=== PATIENT | female | born 1965 | race Caucasian/White ===

== ENCOUNTER 2017-06-08 17:11 | Emergency (ER) | payer BC ==
--- NOTE | 2017-06-08 20:22 | ED ---
Lower Extremity - HPI Summary HPI Summary: 52F presents with swelling to right lower legs for couple weeks. She is sent in by her ortho dr to rule out dvt. She has been evaluated for right knee swelling and is being treat for potential meniscus injury with PT. Her ortho dr noticed that she had inc swelling in right leg that does not believe is related to knee. She denies any calf pain. She denies any numbness or tingling. She states the entire area feels achy. She denies any injury. She states her varicose veins have become more prominent recently. She denies any chest pain or SOB. - History of Current Complaint Chief Complaint: EDExtremityLower Stated Complaint: RT LEG PAIN Time Seen by Provider: 06/08/17 19:51 Pain Intensity: 9 - Allergies/Home Medications Allergies/Adverse Reactions: Allergies Allergy/AdvReac Type Severity Reaction Status Date / Time No Known Allergies Allergy Verified 06/08/17 17:44 PMH/Surg Hx/FS Hx/Imm Hx Endocrine/Hematology History: Denies: Hx Anticoagulant Therapy Cardiovascular History: Reports: Hx Hypertension Infectious Disease History: No Infectious Disease History: Denies: Traveled Outside the [place] in Last 30 Days - Family History Known Family History: Negative: Blood Disorder - Social History Alcohol Use: None Substance Use Type: Reports: None Smoking Status (MU): Never Smoked Tobacco Review of Systems Negative: Fever Negative: Chest Pain Negative: Shortness Of Breath Positive: Myalgia - swelling and pain right leg All Other Systems Reviewed And Are Negative: Yes Physical Exam Triage Information Reviewed: Yes Vital Signs On Initial Exam: Initial Vitals Temp Pulse Resp BP Pulse Ox 98 F 61 16 161/70 100 06/08/17 17:41 06/08/17 17:41 06/08/17 17:41 06/08/17 17:41 06/08/17 17:41 Vital Signs Reviewed: Yes Appearance: Positive: Well-Appearing Skin: Positive: Warm, Dry Head/Face: Positive: Normal Head/Face Inspection Eyes: Positive: Normal, Conjunctiva Clear Respiratory/Lung Sounds: Positive: Clear to Auscultation, Breath Sounds Present Cardiovascular: Positive: Normal, RRR Musculoskeletal: Positive: Strength/ROM Intact - right leg, Edema Right - mild, Other - good pulses, capillary refill<2 secs. Negative: Rico Sign Right Neurological: Positive: Normal Psychiatric: Positive: Normal - Chris Coma Scale Coma Scale Total: 15 Diagnostics - Vital Signs Vital Signs Temp Pulse Resp BP Pulse Ox 06/08/17 20:12 98.1 F 66 18 158/89 99 06/08/17 17:41 98 F 61 16 161/70 100 - Laboratory Lab Statement: Any lab studies that have been ordered have been reviewed, and results considered in the medical decision making process. - Ultrasound No standard instances Ultrasound Interpretation: No Acute Changes - IMPRESSION: 1. No evidence for RIGHT lower extremity deep venous thrombosis. 2. RIGHT Popliteal cyst. Ultrasound Interpretation Completed By: Radiologist Lower Extremity Course/Dx - Course Course Of Treatment: 52F presents with swelling to right lower legs for couple weeks. She is sent in by her ortho dr to rule out dvt. She has been evaluated for right knee swelling and is being treat for potential meniscus injury with PT. Her ortho dr noticed that she had inc swelling in right leg that does not believe is related to knee. She denies any calf pain. She denies any numbness or tingling. She states the entire area feels achy. She denies any injury. She states her varicose veins have become more prominent recently. on exam has mild edema to right leg. neg homans. u/s no DVT, popliteal cyst present. will have follow up with ortho. patient understand and agrees with plan. - Diagnoses Differential Diagnosis/HQI/PQRI: Positive: DVT, Phlebitis, Other - popliteal cyst Provider Diagnoses: Swelling of right lower extremity Discharge - Discharge Plan Condition: Good Disposition: HOME Patient Education Materials: [place] (ED) Referrals: William DURAN,Jacinta Whyte [Primary Care Provider] - Additional Instructions: Wear compressions socks Elevate extremity Take tyenlol for pain every 6 hours Follow up with ortho Return to ED if develop any new or worsening symptoms
--- NOTE | 2017-06-08 20:29 | RAD ---
INDICATION: RIGHT leg pain. COMPARISON: No relevant prior exams available on the [facility] for comparison. TECHNIQUE: Caballero scale, color Doppler, and spectral analysis of the deep veins of the RIGHT lower extremity. Vessel compression, phasicity, and augmentation assessed. REPORT: The RIGHT common femoral, great saphenous, profunda femoral, femoral, popliteal, peroneal, and posterior tibial veins are patent. 6.0 x 1.9 x 3.7 cm RIGHT popliteal cyst with evidence for synovitis. Patency of the LEFT common femoral vein documented. IMPRESSION: 1. No evidence for RIGHT lower extremity deep venous thrombosis. 2. RIGHT Popliteal cyst.
[2017-06-08 21:03] VITALS: BP 126/77
== END 2017-06-08 21:03 | disposition home or self-care (01) ==
LOC: ED 17:11
DX: M79.89 Other specified soft tissue disorders (principal); I10 Essential (primary) hypertension
CPT/HCPCS: 99282

== ENCOUNTER 2017-08-23 05:53 | Day surgery (SDC) | payer BC, OTHER ==
[~2017-08-23 05:53] MED LIST: Buffered Lidocaine 0.9% SYRIN* 5 ML/SYR SYRINGE INTRADERM ONE
[2017-08-23] MEDS ORDERED: Famotidine IV* 10 MG/ML 2 ML (20 mg) IV ONE (06:00)
[2017-08-23] MEDS ORDERED: Dexamethasone IV* 4 MG/ML 1 ML (4 MG) IV SLOW PU ONE (06:00)
[2017-08-23] MEDS ORDERED: Famotidine IV* 10 MG/ML 2 ML (20 mg) ONE (06:03)
[2017-08-23] MEDS ORDERED: Buffered Lidocaine 0.9% SYRIN* 5 ML/SYR SYRINGE ONE (06:04)
[2017-08-23] MEDS ORDERED: Dexamethasone IV* 4 MG/ML 1 ML (4 MG) ONE (06:04)
[2017-08-23] MEDS ORDERED: Bupivacaine 0.25% SDV* 30 ML ONE (07:01)
[2017-08-23] MEDS ORDERED: Lidocaine 1% MPF wEPI 200,000* 30 ML SDV ONE (07:01)
[2017-08-23] MEDS ORDERED: Midazolam* 1 MG/ML 10 ML VIAL (10 MG) ONE (07:08)
[2017-08-23] MEDS ORDERED: fentaNYL* 50 MCG/ML 2 ML VIAL (100 MCG VIAL) ONE ×3 (07:08→07:43)
[2017-08-23] MEDS ORDERED: Ketorolac INJ* 30 MG/ML 1 ML VIAL ONE (07:18)
[2017-08-23] MEDS ORDERED: Ondansetron INJ* 2 MG/ML VIAL ONE (07:18)
[2017-08-23] MEDS ORDERED: Phenylephrine INJ* 10 MG/ML 1 ML VIAL (10 MG) ONE (07:18)
[2017-08-23] MEDS ORDERED: Lidocaine 2% PF * 5 ML VIAL ONE (07:18)
[2017-08-23] MEDS ORDERED: Propofol* 10 MG/ML 20 ML BTL IV PUSH ONE (07:18)
[2017-08-23] MEDS ORDERED: EPHEDrine (Pressors)* 50 MG/ML VIAL ONE (07:19)
[2017-08-23] MEDS ORDERED: Glycopyrrolate IV* 0.2 MG/ML 1 ML VIAL ONE (07:30)
[2017-08-23] MEDS ORDERED: fentaNYL* 50 MCG/ML 2 ML VIAL (100 MCG VIAL) IV PRN (07:48)
[2017-08-23] MEDS ORDERED: Ondansetron INJ* 2 MG/ML VIAL IV PRN (07:48)
[2017-08-23] MEDS ORDERED: Naloxone* 0.4 MG/ML 1 ML VIAL IV PRN (07:48)
[2017-08-23] MEDS ORDERED: DiMENhydriNATE IV* 50 MG/ML VIAL IV PUSH PRN (07:48)
[2017-08-23] MEDS ORDERED: ceFAZolin 2 GM PREMIX (*) 2 GM/50 ML BAG IVPB ONE (08:00)
--- NOTE | 2017-08-23 08:43 | OP ---
Operative Report - Blank - Operative Report Date of Operation: 08/23/17 Note: PATIENT: Luna Beck DATE OF : 61 DATE OF SURGERY: 08/23/17 SURGEON: Hussain Lee MD MILL MANAGER: MARITZA Valiente's assistance was necessary for positioning, retraction, help with instrumentation, and closure. ANESTHESIOLOGIST: Dr Scott MD PREOPERATIVE DIAGNOSIS: Right knee traumatic lateral meniscus tear POSTOPERATIVE DIAGNOSIS: Right knee traumatic lateral and medial mensicus tears OPERATION: Right knee arthroscopy and partial lateral meniscectomy Right knee arthroscopy and partial medial mensicectomy ANESTHESIA: general endotracheal anesthesia IMPLANTS: None TOURNIQUET TIME: . Less than one hour, with a well-padded thigh tourniquet at 250 mmHg SPECIMENS: None ESTIMATED BLOOD LOSS: . Minimal COMPLICATIONS: . None STATUS: Stable from the operating room to the recovery room and then home. INDICATIONS FOR PROCEDURE: Luna is a 52-year-old woman who sustained a work-related injury to the right knee. Pain was refractory to rest, bracing, physical therapy. MRI showed a complex lateral meniscus tear. Both operative and non operative treatment alternatives were reviewed. Further, the nature and risks of surgery were reviewed in careful detail, in the office as well as the pre-operative holding area. Our discussions regarding the risks of surgery included, but were not limited to, infection, wound problems, nerve injury, neuroma, RSD, persistent symptoms, blood clot, failure of the surgery, progression of arthritis and even the remote chance of catastrophic complication, including loss of limb. DESCRIPTION OF PROCEDURE: The patient was seen in the preoperative holding unit and informed written consent was obtained. The appropriate extremity was marked. The patient was then brought to the operating room and carefully positioned on the operating room table. Anesthesia was induced. All bony prominences were padded with great care. A well-padded thigh tourniquet was placed. An alcohol based scrub was performed followed by prep and drape in standard sterile fashion. A surgical safety pause was then conducted in which we confirmed the appropriate patient, extremity, planned procedure, availability of equipment, indication and administration of prophylactic antibiotics, and DVT prophylaxis in the form of a compression boot on the non-surgical extremity. We began with Esmarch exsanguination of the limb and inflated the tourniquet. Sterile saline was injected into the joint. A standard anterolateral knee arthroscopy portal was made with an 11 blade. The knee scope was inserted into the joint and a diagnostic knee arthroscopy was performed. She did have some mild degenerative changes on the trochlea and the medial compartment. In the lateral compartment, she had grade 3/4 [place]bridge changes. Additionally, an anterior horn of the medial meniscus tear was appreciated. She also had a very complex tear involving almost the entirety of the lateral meniscus. Some of the lateral meniscus had flipped into the intercondylar notch. There was also some extrusion into the lateral gutter. Utilizing biters and a full-radius shaver, both the medial meniscus tear as well as a large lateral meniscus tear were debrided back to a stable rim. This did involve removing much of the lateral meniscus. The anterior and posterior cruciate ligaments were probed and stable. Some synovitis was debridement in the patellofemoral compartment and all loose debris was excised with the shaver. At this point, we irrigated copiously and then closed in layers meticulously utilizing 3-0 Monocryl and 3-0 nylon for the skin. A sterile dressing was then applied. Local anesthesia was provided to the incision sites. The patient was then awakened from anesthesia and transferred to the recovery room in stable condition. There were no complications. All needle and sponge counts were correct at the end of the case. ATTESTATION: I attest I was present and scrubbed and performed the critical portions of the procedure myself. POSTOPERATIVE PLAN: I will see Luna back in 2 weeks for likely suture removal and application of Steri-Strips. At that time, we will initiate weightbearing and physical therapy.
[2017-08-23] MEDS ORDERED: HYDROmorphone INJ* 2 MG/ML CARPUJECT SYRINGE ONE (09:06)
[2017-08-23] MEDS ORDERED: oxyCODONE/Acetamin 5/325 MG* TAB ONE (09:06)
[2017-08-23] MEDS: oxyCODONE/Acetamin 5/325 MG* TAB PO PRN ×2 (09:07→09:08)
[2017-08-23] MEDS: HYDROmorphone INJ* 1 MG/ML CARPUJECT SYRINGE IV PRN ×2 (09:11→09:20)
[2017-08-23 09:20] VITALS: BP 144/86
== END 2017-08-23 09:52 | disposition home or self-care (01) ==
LOC: OR 05:53
PROVIDERS: ATTEND Orthopaedic Surgery
DX: S83.251A Bucket-handle tear of lateral meniscus, current injury, right knee, initial encounter (principal); S83.241A Other tear of medial meniscus, current injury, right knee, initial encounter; M25.461 Effusion, right knee; M25.561 Pain in right knee; X58.XXXA Exposure to other specified factors, initial encounter
CPT/HCPCS: A9270-GY; J0690; J1100; J1170; J1885; J2001; J2250; J2405; J2704; J3010

== ENCOUNTER 2023-05-01 13:22 | Observation (INO) ==
[~2023-05-01 13:22] MED LIST changes: -Buffered Lidocaine 0.9% SYRIN* 5 ML/SYR SYRINGE INTRADERM ONE; +HYDROmorphone 1 MG/1 ML SYRINGE IV PRN; +Naloxone 0.4 mg VIAL 0.4 mg/ml 1 ml VIAL IV PRN; +Ondansetron 4 mg VIAL 2 MG/ML 2 ml VIAL IV PRN; +ROPIVACAINE 5 MG/ML 30 ML BTL (0.5%) ONE; +fentaNYL 100 mcg/2 ml 50 MCG/ML VIAL IV PRN
[2023-05-01] MEDS ORDERED: Buffered Lidocaine 1% SYRIN 1 ml INTRADERM ONE (13:24)
[2023-05-01] MEDS ORDERED: Midazolam 2 mg/2 ml VIAL 1 mg/ml 2 ml VIAL (2 mg) ONE ×2 (13:46→16:56)
[2023-05-01] MEDS ORDERED: Ondansetron 4 mg VIAL 2 MG/ML 2 ml VIAL ONE (13:46)
[2023-05-01] MEDS ORDERED: Lidocaine 2% PF 5 ML VIAL ONE (13:46)
[2023-05-01] MEDS ORDERED: Dexamethasone IV 4 MG/ML VIAL 1 ml VIAL ONE (13:46)
[2023-05-01] MEDS ORDERED: Propofol 10 MG/ML 20 ML BTL ONE (13:46)
[2023-05-01] MEDS ORDERED: fentaNYL 100 mcg/2 ml 50 MCG/ML VIAL ONE (13:46)
[2023-05-01] MEDS ORDERED: ceFAZolin 2 GM in NS PREMIX 2 GM/100 ML BAG IVPB ONE (13:47)
[2023-05-01] MEDS ORDERED: Tranexamic Acid 1 GM/100ML BAG 2,000 MG/200 ML BAG IV ONE (13:47)
[2023-05-01] MEDS ORDERED: Lactated Ringers 1000 ml BAG 1,000 ML IV SCH ×2 (14:00→17:00)
[2023-05-01 14:02] LABS: Rapid COVID-19 Molecular Undetected (Undetected)
[2023-05-01] MEDS ORDERED: Lidocaine 1% MPF 5 ML VIAL ONE (15:26)
[2023-05-01] MEDS ORDERED: Ropivacaine 5 MG/ML 20 ML VIAL 0.5% (100 MG) ONE (15:26)
[2023-05-01] MEDS ORDERED: Ondansetron 4 mg VIAL 2 MG/ML 2 ml VIAL IV PRN (16:26)
[2023-05-01] MEDS ORDERED: Ondansetron ODT 4 mg TAB 4 MG TAB PO PRN (16:26)
[2023-05-01] MEDS ORDERED: Lactulose 30 ml UDC PO PRN (16:26)
[2023-05-01] MEDS ORDERED: Magnesium Hydroxide LIQ 30 ML UDC PO PRN (16:26)
[2023-05-01] MEDS ORDERED: Morphine 2 MG/ML SYRINGE IV PRN (16:26)
[2023-05-01] MEDS: Lactated Ringers 1000 ml BAG 1,000 ML IV SCH (21:27)
[2023-05-01] MEDS: Magnesium Hydroxide LIQ 30 ML UDC PO SCH (21:35)
[2023-05-02] MEDS: ceFAZolin 1 GM ADVAN 1 GM in NS 0.9% 50 ML 50 ML IVPB SCH ×3 (00:48→16:22)
[2023-05-02] MEDS: Lactated Ringers 1000 ml BAG 1,000 ML IV SCH (06:00)
[2023-05-02 06:55] LABS: Hematocrit 32.1 % (35-45); Mean Platelet Volume 7.2 fL (7.5-11.2); Platelet Count 271 10^3/uL (150-450)
[2023-05-02 07:17] LABS: Calcium 8.7 mg/dL (8.6-10.3); Creatinine, Serum 0.53 mg/dL (0.51-0.95); Potassium 3.9 mmol/L (3.5-5.0); eGFR CKD-EPI 106.5 (>60)
[2023-05-02] MEDS: Magnesium Hydroxide LIQ 30 ML UDC PO SCH (08:37)
[2023-05-02] MEDS ORDERED: Vitamin THERAPEUTIC TAB PO SCH (09:00)
[2023-05-02] MEDS ORDERED: Influenza vaccine *QUAD* *2023-24* 0.5 ML SYRINGE IM ONE (09:00)
[2023-05-02 14:05] VITALS: BP 130/65
== END 2023-05-02 17:10 | disposition home or self-care (01) ==
LOC: OR 13:22 → SSU 13:22
PROVIDERS: ADMIT Orthopaedic Surgery Adult Reconstructive Orthopaedic Surgery; ATTEND Orthopaedic Surgery Adult Reconstructive Orthopaedic Surgery